=== PATIENT | female | born 2000 | race African-American/Black ===

== ENCOUNTER 2025-02-28 23:22 | Emergency (ER) | payer SELFPAY ==
[2025-03-01] MEDS ORDERED: Lidocaine 1% w/Epinephrine 1:100K 20 ML VIAL ONE (01:12)
[2025-03-01] MEDS ORDERED: Boostrix 0.5 ML (Tdap) VIAL (>/=7 yrs of age) ONE (02:05)
== END 2025-03-01 02:15 | disposition home or self-care (01) ==
LOC: ERS 23:22
DX: L05.91 Pilonidal cyst without abscess (principal); Z23 Encounter for immunization; F17.210 Nicotine dependence, cigarettes, uncomplicated
CPT/HCPCS: 10080; 87070; 87205; 90471; 90715; 96372; J2270